=== PATIENT | female | born 1970 | race African-American/Black ===

== ENCOUNTER 2017-07-16 00:36 | Emergency (ER) | payer SELFPAY ==
[2017-07-16 01:31] LABS: Hemoglobin 13.4 g/dL (12.0-16.0); Mean Corpuscular HGB CONC 33.1 g/dL (32.0-36.0); Mean Corpuscular Volume 99.6 fl (81.0-99.0); Mean Platelet Volume 8.5 fL (7.4-10.4); Platelet Count 184 thou/uL (130-400); RBC Distribution Width 10.9 % (11.5-14.5); Red Blood Cell (RBC) Count 4.05 mill/uL (4.20-5.40); White Blood Cell (WBC) Count 5.8 thou/uL (4.8-10.8)
[2017-07-16 01:32] LABS: Eosinophils 1 % (0-10); Lymphocytes 60 % (21-51); MDiff Complete? YES; Monocytes 4 % (0-10); Neutrophil 35 % (42-75); PLT Morphology Comment Appears Adequate; RBC Morphology Normal
[2017-07-16 01:34] LABS: Magnesium 2.2 mg/dL (1.6-2.6)
[2017-07-16 01:39] LABS: CKMB 0.3 ng/mL (0-6.6); Troponin I Less than 0.010 ng/mL (< 0.028)
[2017-07-16] MEDS ORDERED: Acetaminophen 500 MG TAB ONE (02:10)
[2017-07-16] MEDS ORDERED: cloNIDine 0.1 MG TAB ONE (02:10)
== END 2017-07-16 03:16 | disposition home or self-care (01) ==
LOC: ERS 00:36
DX: G43.909 Migraine, unspecified, not intractable, without status migrainosus (principal); R07.89 Other chest pain; I10 Essential (primary) hypertension; G51.0 Bell's palsy; Z79.899 Other long term (current) drug therapy
CPT/HCPCS: 36415; 82553; 83735; 84484; 85025; 93005

== ENCOUNTER 2020-06-29 13:45 | Emergency (ER) | payer SELFPAY ==
--- NOTE | 2020-06-29 14:06 | RAD ---
LEFT FOOT RADIOGRAPHS THREE VIEWS: 06/29/20 PROVIDED CLINICAL HISTORY: Pain. FINDINGS: There is no evidence for fracture or other acute osseous abnormality. If there is persistent clinical concern, conservative management and follow-up imaging are advised. IMPRESSION: As above. POS: [facility]
== END 2020-06-29 14:26 | disposition home or self-care (01) ==
LOC: ERS 13:45
DX: S90.122A Contusion of left lesser toe(s) without damage to nail, initial encounter (principal); I10 Essential (primary) hypertension; W22.8XXA Striking against or struck by other objects, initial encounter